=== PATIENT | male | born 1950 | race Caucasian/White ===

== ENCOUNTER 2017-05-27 09:08 | Day surgery (SDC) | END 2017-05-27 11:52 | disposition home or self-care (01) ==

== ENCOUNTER 2018-04-08 16:25 | Emergency (ER) | payer BC, OTHER ==
[~2018-04-08] VITALS: Ht 182.9 cm; Wt 94.0 kg
[~2018-04-08 16:25] MED LIST: ASPI-535 PO; ATOR-2 PO; EMPA10TA PO; GLIP10TA14 PO; KETO5DRO22 OP; LORA10TA3 PO; LOSA1TAB25 PO; METF-849 PO; METO-429 PO; OMEP40CA6 PO; PIOG45TA64 PO; SITA100T11 PO
[2018-04-08 16:51] VITALS: Ht 182.9 cm; Wt 94.0 kg
--- NOTE | 2018-04-08 18:30 | ERD ---
ER Documentation Chief Complaint Chief Complaint pt bib family sent by PMD for sob , possible CHF HPI 67-year-old male with a history of diabetes and high blood pressure brought in by family for shortness of breath. Patient was sent by a nurse practitioner at his clinic for possible CHF. Patient has had a cough and shortness of breath for the past 2 weeks with no other associated symptoms such as runny nose or sneezing. No fevers or chills. No hemoptysis or colored phlegm. He has been sleeping normally without orthopnea or paroxysmal nocturnal dyspnea. He denies any new onset leg swelling or abdominal swelling. No chest pain. ROS All systems reviewed and are negative except as per history of present illness. Medications Home Meds Active Scripts Prednisone* (Prednisone*) 20 Mg Tab, 60 MG PO DAILY for 5 Days, TAB Prov:IGNACIO TORRES MD 04/08/18 Albuterol Sulfate* (Ventolin HFA*) 18 Gm Hfa.aer.ad, 2 PUFF INHALATION Q4H PRN for WHEEZING, #1 INHALER Prov:IGNACIO TORRES MD 04/08/18 Reported Medications Metformin* (Glucophage*) 500 Mg Tab, 500 MG PO WITH BREAKFAST, #30 TAB 05/27/17 Atorvastatin* (Atorvastatin*) 80 Mg Tablet, 80 MG PO QHS, #30 TAB 05/27/17 Aspirin Ec (Aspir 81) 81 Mg Tablet.dr, 81 MG PO DAILY, #30 TAB 05/27/17 Omeprazole* (Omeprazole*) 40 Mg Capsule.dr, 40 MG PO DAILY, #30 CAP 05/27/17 Pioglitazone Hcl* (Pioglitazone Hcl*) 45 Mg Tablet, 45 MG PO DAILY, TAB 05/27/17 Glipizide* (Glipizide*) 10 Mg Tablet, 10 MG PO AC BREAKFAST, TAB 05/27/17 Sitagliptin* (Januvia*) 100 Mg Tablet, 100 MG PO DAILY, #30 TAB 05/27/17 Loratadine* (Loratadine*) 10 Mg Tablet, 10 MG PO DAILY, #30 TAB 05/27/17 Losartan-Hydrochlorothiazide (Losartan-HCTZ) 100-25 Mg Tab, 1 TAB PO DAILY, TAB 05/27/17 Metoprolol Tartrate* (Lopressor*) 50 Mg Tab, 50 MG PO BID, #60 TAB 05/27/17 Empagliflozin (Jardiance) 10 Mg Tablet, 10 MG PO, TAB 05/27/17 Ketotifen Fumarate (KETOTIFEN FUMARATE) 5 Ml Drops, 5 ML OP, BOTTLE 05/27/17 Allergies Allergies: Coded Allergies: No Known Drug Allergies (Verified Allergy, Unknown, 04/08/18) PMhx/Soc History of Surgery: No Anesthesia Reaction: No Hx Neurological Disorder: No Hx Respiratory Disorders: Yes (ASTHMA, NO INHALER FOR 4 YEARS, HAD PNEUMONIA 20 YRS AGO) Hx Cardiac Disorders: Yes (HTN, HIGH CHOL) Hx Psychiatric Problems: No Hx Miscellaneous Medical Probl: No Hx Alcohol Use: Yes (OCCASIONALLY 2 BEERS/MONTH) Hx Substance Use: No Hx Tobacco Use: Yes (QUIT 25-30 YRS AGO) FmHx Family History: No coronary disease Physical Exam Vitals Vital Signs Date Temp Pulse Resp B/P (MAP) Pulse Ox O2 O2 Flow FiO2 Time Delivery Rate 04/08/18 77 18 135/72 98 Room Air 20:09 (93) 04/08/18 75 20 100 Nasal 2.0 19:24 Cannula 04/08/18 Nasal 2 18:45 Cannula 04/08/18 97.8 84 22 141/77 92 16:51 (98) Physical Exam Const: No acute distress, well-appearing, nontoxic Head: Atraumatic Eyes: Normal Conjunctiva, PERRLA ENT: Normal External Ears, Nose and Mouth. Neck: Full range of motion. No meningismus. No JVD Resp: Mildly diminished breath sounds bilaterally. Diffuse expiratory wheezing with no rales or rhonchi Cardio: Regular rate and rhythm, no murmurs. 2+ distal pulses Abd: Soft, non tender, non distended. Normal bowel sounds Skin: No petechiae or rashes Back: No midline or flank tenderness Ext: No cyanosis, trace ankle edema, chronic per patient Neur: Awake and alert Psych: Normal Mood and Affect Result Diagram: 04/08/18182704/08/181827 Results 24 hrs Laboratory Tests Test 04/08/18 18:24 04/08/18 18:28 Blood Gas Specimen Source Blood venous Arterial Blood Date Drawn 04/08/2018 7:25:05 PM Arterial Blood Gas Puncture Site VENOUS LINE Peter Test N/A Venous Blood pH 7.442 Venous Blood pCO2 (Temp Corrected) 47.3 mmHG Venous Blood pO2 (Temp Corrected) 42.1 mmHG Venous Blood HCO3 31.6 mmol/L Venous Blood Oxygen Saturation 76.5 mmHG Venous Blood Base Excess 6.4 mmol/L Venous Blood Total Hemoglobin 13.5 g/dl Venous Blood Oxyhemoglobin 76.0 % Venous Blood Methemoglobin 0.2 % Carboxyhemoglobin 0.4 % Blood Gas Temperature 37.0 C Blood Gas Actual Respiration Rate 18 Blood Gas Modality NASAL CANNULA FiO2 27.0 % Blood Gas Notified Whom Serene MARTI TANK ERECTOR Blood Gas Notified Time 04/08/2018 7:30:32 PM White Blood Count 11.7 10^3/ul Red Blood Count 4.45 10^6/ul Hemoglobin 13.2 g/dl Hematocrit 39.7 % Mean Corpuscular Volume 89.2 fl Mean Corpuscular Hemoglobin 29.7 pg Mean Corpuscular Hemoglobin Concent 33.2 g/dl Red Cell Distribution Width 12.8 % Platelet Count 304 10^3/UL Mean Platelet Volume 9.9 fl Immature Granulocytes % 0.600 % Neutrophils % 75.9 % Lymphocytes % 12.0 % Monocytes % 6.9 % Eosinophils % 4.1 % Basophils % 0.5 % Nucleated Red Blood Cells % 0.0 /100WBC Immature Granulocytes # 0.070 10^3/ul Neutrophils # 8.9 10^3/ul Lymphocytes # 1.4 10^3/ul Monocytes # 0.8 10^3/ul Eosinophils # 0.5 10^3/ul Basophils # 0.1 10^3/ul Nucleated Red Blood Cells # 0.0 10^3/ul Sodium Level 140 mmol/L Potassium Level 3.5 mmol/L Chloride Level 95 mmol/L Carbon Dioxide Level 34 mmol/L Anion Gap 11 Blood Urea Nitrogen 15 mg/dl Creatinine 0.95 mg/dl Est Glomerular Filtrat Rate mL/min > 60 mL/min Glucose Level 83 mg/dl Calcium Level 10.1 mg/dl Total Bilirubin 0.1 mg/dl Direct Bilirubin 0.00 mg/dl Indirect Bilirubin 0.1 mg/dl Aspartate Amino Transf (AST/SGOT) 38 IU/L Alanine Aminotransferase (ALT/SGPT) 39 IU/L Alkaline Phosphatase 88 IU/L Troponin I < 0.012 ng/ml B-Type Natriuretic Peptide 37 PG/ML Total Protein 8.0 g/dl Albumin 4.3 g/dl Globulin 3.70 g/dl Albumin/Globulin Ratio 1.16 Current Medications Medications Dose Sig/Raymundo Start Time Status Last (Trade) Ordered Route PRN Stop Time Admin Dose Reason Admin Albuterol 5 mg ONCE STAT 04/08/18 DC 04/08/18 (Proventil NEB 19:14 04/08/18 19:24 0.083% (Neb)) 19:15 Ipratropium 0.5 mg ONCE STAT 04/08/18 DC 04/08/18 Imbler NEB 19:14 04/08/18 19:24 (Atrovent 19:15 0.02% (Neb)) 10 mg ONCE ONCE 04/08/18 DC 04/08/18 Dexamethasone IV 20:00 04/08/18 20:05 (Decadron) 20:01 Procedures/MDM EMERGENT LABS AND DIAGNOSTIC STUDIES: Lab Results above were reviewed and interpreted by me. CBC: no evidence of significant anemia or evidence of infection CMP: No evidence of electrolyte abnormality, renal failure, hypoglycemia, liver failure, or biliary obstruction BMP within normal limits, no evidence of heart strain Troponin within normal limits, not indicative of cardiac ischemia 12-lead EKG was interpreted by Venu Torres MD: Normal Sinus Rhythm Normal axis Normal intervals No acute ST or T wave changes suggestive of acute ischemia or STEMI. Radiology Results as interpreted by Radiology below were reviewed by S. Venu rolle MD: Chest x-ray: No significant abnormalities Initial Nursing notes reviewed. Previous Medical Records requested via the Electronic Health Record. EMERGENCY DEPARTMENT COURSE / MEDICAL DECISION MAKING: Patient is presenting with cough for 2 weeks with associated wheezing. Vitals were notable for hypoxia on room air and tachypnea. However I have a low suspicion for pneumonia or acute infection. Given concern for possible heart failure, workup was initiated. His workup is not indicative of acute CHF. He was given breathing treatments for possible bronchospasm due to bronchitis. His wheezing resolved after the breathing treatment and the patient felt much better. Decadron was given. I have a low suspicion for lower respiratory tract infection. Patient will be discharged with a prescription for prednisone and albuterol. I discussed with him the effects of prednisone on his blood sugar. He is aware and will follow up with his primary care doctor within the next 2-3 days for recheck. Patient's blood pressure was elevated (>120/80) but appears stable without evidence of hypertensive emergency or urgency. The patient was counseled about the risks of hypertension and urged to pursue outpatient monitoring and therapy within a week with their primary care physician. Departure Diagnosis: Primary Impression: Persistent cough Additional Impressions: Shortness of breath Bronchitis Condition: Stable IGNACIO TORRES MD Apr 08, 2018 18:30
[2018-04-08] MEDS ORDERED: ALBUTEROL 0.083% (NEB) 2.5 MG/3 ML AMP NEB STA (19:14)
[2018-04-08] MEDS ORDERED: IPRATROPIUM (NEB) 0.5 MG/2.5 ML AMP NEB STA (19:14)
[2018-04-08] MEDS ORDERED: ALBU18HF INHALATION (19:48)
[2018-04-08] MEDS ORDERED: PRED20TA PO (19:48)
[2018-04-08] MEDS ORDERED: DEXAMETHASONE 10 MG/ML 1 ML INJ IV ONE (20:00)
[2018-04-08 20:09] VITALS: BP 135/72; PULSE 77; RESP 18
== END 2018-04-08 20:19 | disposition home or self-care (01) ==
LOC: E/R 16:25
DX: J45.909 Unspecified asthma, uncomplicated (principal); I10 Essential (primary) hypertension; Z79.82 Long term (current) use of aspirin; Z79.84 Long term (current) use of oral hypoglycemic drugs; Z87.891 Personal history of nicotine dependence
CPT/HCPCS: 36415; 71045; 80053; 82803; 83880; 84484; 85025; 94664; J1100; 93005; 96374